=== PATIENT | female | born 1990 | race Caucasian/White ===

== ENCOUNTER → 2019-03-31 11:42 | Outpatient (POV) | payer SELFPAY | PROVIDERS: Visit Provider Dentist | DX: Z00.00 Encounter for general adult medical examination without abnormal findings (principal) ==

== ENCOUNTER → 2019-06-02 13:19 | Outpatient (POV) | payer SELFPAY | PROVIDERS: Visit Provider Dentist | DX: Z00.00 Encounter for general adult medical examination without abnormal findings (principal) ==

== ENCOUNTER → 2019-07-07 09:50 | Outpatient (POV) | payer SELFPAY | PROVIDERS: Visit Provider Dentist | DX: Z00.00 Encounter for general adult medical examination without abnormal findings (principal) ==